=== PATIENT | female | born 1960 | race Caucasian/White ===

== ENCOUNTER 2019-02-05 10:42 | Emergency (ER) | payer MEDICARE ==
[~2019-02-05] VITALS: Ht 160 cm; Wt 71.7 kg
[2019-02-05 10:59] VITALS: BP 126/74
== END 2019-02-05 12:26 | disposition home or self-care (01) ==
LOC: ER 10:43
DX: R22.32 Localized swelling, mass and lump, left upper limb (principal); M79.642 Pain in left hand; M25.532 Pain in left wrist; M54.9 Dorsalgia, unspecified; G89.29 Other chronic pain; Z60.2 Problems related to living alone
CPT/HCPCS: 29125; 73110; 73130; 99283; L3763